=== PATIENT | female | born 2000 | race Two or more races ===

== ENCOUNTER 2024-04-24 05:46 | Inpatient (IN) | payer SELFPAY ==
[2024-04-24] VITALS (17 sets, daily range): BP systolic 109–141; BP diastolic 67–108; PULSE 51–138; RESP 17–18; TEMP 36.2–36.8; O2SAT 81–100; BMI 29.2
[2024-04-24 06:56] LABS: Basophils Absolute Auto 0.1 K/mm3 (0.0-0.1); Basophils Percent Auto 0.5 % (0.2-1.2); Eosinophils Absolute Auto 0.1 K/mm3 (0-0.3); Eosinophils Percent Auto 0.8 % (0-4.4); Hematocrit 34.4 % (37.0-47.0); Hemoglobin 10.6 g/dL (12.0-15.0); Immature Granulocyte Absolute 0.06 K/mm3 (0.00-0.031); Immature Granulocyte Percent A 0.6 % (0-0.5); Lymphocytes Absolute Auto 3.26 K/mm3 (0.9-3.2); Lymphocytes Percent Auto 33.7 % (18.3-44.2); Mean Corpuscular HGB Conc 30.8 g/dl (32-36); Mean Corpuscular Hemoglobin 22.5 pg (26-34); Mean Corpuscular Volume 72.9 fl (80-100); Mean Platelet Volume 10.4 fl (7.4-10.4); Monocytes Absolute Auto 0.9 K/mm3 (0.1-0.6); Monocytes Percent Auto 9.2 % (2.6-8.5); Neutrophils Absolute Auto 5.3 K/mm3 (1.3-6.7); Neutrophils Percent Auto 55.2 % (45.5-73.1); Platelet Count Result 323 k/mm3 (150-375); Red Blood Count 4.72 M/mm3 (4.2-5.4); White Blood Count 9.7 K/mm3 (4.5-10.0)
[2024-04-24] MEDS: AMPICILLIN 2 GM/NS 100 ML 2 GM/100 ML BAG IVPB (07:00)
[2024-04-24] MEDS: LACTATED RINGERS 1,000 ML 125 ML IV CONT (07:17)
[2024-04-24 07:19] LABS: Platelet Estimate Adequate (Adequate)
[2024-04-24 07:20] LABS: Anisocytosis 1+; Microcytosis 1+ (NORMAL); Ovalocytes 1+; Schistocytes Rare
--- NOTE | 2024-04-24 07:20 | WPDANESEPP ---
Anes - Eval Pre Procedure Procedure: Labor Epidural Date/Time: 04/24/24 07:20 Surgeon: Carlos Preop Diagnosis: Pain during labor Pre Op Diagnosis: Contractions, Leaking Patient Data Age: 23 Gender: F Height: 1.57 m Weight: 72.5 kg Allergies Allergy/AdvReac Type Severity Reaction Status Date / Time No Known Allergies Allergy Verified 03/22/24 13:02 Home Medications Medication Instructions Recorded Confirmed Type vits no.126-ferrous fum 1 tablet PO DAILY 03/22/24 03/22/24 History 28 mg iron-folic acid 800 mcg tablet (Classic ) Laboratory Tests 04/24/24 06:31 WBC 9.7 K/mm3 (4.5-10.0) RBC 4.72 M/mm3 (4.2-5.4) Hgb 10.6 L g/dL (12.0-15.0) Hct 34.4 L % (37.0-47.0) MCV 72.9 L fl (80-100) MCH 22.5 L pg (26-34) MCHC 30.8 L g/dl (32-36) RDW 19.0 H % (11.5-14.5) Plt Count 323 k/mm3 (150-375) MPV 10.4 fl (7.4-10.4) Immature Gran % (Auto) 0.6 H % (0-0.5) Neut % (Auto) 55.2 % (45.5-73.1) Lymph % (Auto) 33.7 % (18.3-44.2) Swain % (Auto) 9.2 H % (2.6-8.5) Eos % (Auto) 0.8 % (0-4.4) Baso % (Auto) 0.5 % (0.2-1.2) Lymph # (Auto) 3.26 H K/mm3 (0.9-3.2) Swain # (Auto) 0.9 H K/mm3 (0.1-0.6) Eos # (Auto) 0.1 K/mm3 (0-0.3) Baso # (Auto) 0.1 K/mm3 (0.0-0.1) Abs Immat Gran (auto) 0.06 H K/mm3 (0.00-0.031) Absolute Neuts (auto) 5.3 K/mm3 (1.3-6.7) Absolute Nucleated RBC 0.000 K/mm3 (0.0-0.012) Nucleated RBC % 0.0 % (0.0-0.2) Platelet Estimate Adequate (Adequate) Anisocytosis 1+ Microcytosis 1+ (NORMAL) Ovalocytes 1+ Schistocytes Rare RPR Pending HIV 1&2 Ab/P24 Ag 4thGn Pending Patient hx anesthesia problems: none Family hx anesthesia problems: none Results Review: All pre-operative results and documents have been reviewed as part of the pre-operative evaluation. PMFSH Family History Family History Other No pertinent family history Social History Social History Smoking status: Never smoker Second hand tobacco smoke exposure: No Substance use: never Do You Feel Safe in your Home?: Yes Lack of Transportation: No Lack of Food: Never True Current Housing: I Have Housing Concerned About Future Housing: No Difficulty Paying Gas/Electric Bills: No Difficulty Paying for Meds: No Currently Unemployed: No Education: Don't Know Difficulty w/ Childcare or Family Care: No Spiritual care concerns: No Exam Day of Procedure 04/24/24 07:20 Patient weight: overweight Heart: regular rate and rhythm Lungs: clear to auscultation Airway: Mallampati scale class II Neurological: alert and oriented
[2024-04-24 07:26] LABS: Rapid Plasma Reagin Non-Reactive (NonReactive)
[2024-04-24] MEDS: OXYTOCIN 30 UNITS/NS 500 ML 30 UNITS/500 ML BAG 999 UNITS IV CONT (07:39)
[2024-04-24 07:52] LABS: HIV 1/2 Ab P24 Ag Result Negative (Negative)
[2024-04-24] MEDS: OXYTOCIN 30 UNITS/NS 500 ML 30 UNITS/500 ML BAG 125 UNITS IV CONT (08:13)
--- NOTE | 2024-04-24 08:34 | PM.OBPRVD ---
OB - Vaginal Delivery Note Procedure Delivery date: 04/24/24 Delivery monitor: External FHT and External Uterine Route of delivery: Episiotomy description: None Laceration Description: Periurethral and Perineal - 1st Degree Delivery repair: vicryl Specimen: No Quantitative Blood Loss (ml): 100 Complications: No immediate complications [place] Baby Date of : 04/24/24 Time of : 07:36 Gestational Age by Date: 40 Weight (pounds): 8 Weight (ounces): 0
[2024-04-24] MEDS: WITCH HAZEL 40 PADS 1 PAD TOPICAL (10:25)
[2024-04-24] MEDS: BENZOCAINE 20% AER SPR (*SP) 56 GM CAN 1 SPRAY TOPICAL (10:25)
--- NOTE | 2024-04-24 10:56 | OBPPTRN ---
Patient transferred to post room #[id number] via (wheelchair ). Support person present. Oriented to unit, room, information board, rooming in, admission packet and security measures. Patient verbalizes understanding.
--- NOTE | 2024-04-24 12:36 | PC.NURSE ---
Violette #[id number] used on stratus to orient patient and family to floor and discuss care and testing for baby. Parents verbalize understanding.
[2024-04-25 03:47] LABS: Hemoglobin 9.1 g/dL (12.0-15.0)
[2024-04-25] MEDS: IBUPROFEN 600 MG TABLET PO (04:50)
[2024-04-25 05:13] VITALS: BP 111/73; PULSE 57; RESP 16; TEMP 36.7; O2SAT 99
[2024-04-25] MEDS: POLYSACCHARIDE IRON COMPLEX 150 MG CAPSULE PO ×2 (07:23→16:02)
[2024-04-25 07:43] VITALS: BP 111/67; PULSE 60; RESP 16; TEMP 36.8; O2SAT 99
--- NOTE | 2024-04-25 09:04 | PM.OBPNVD ---
OB - PN: Subj Subjective Date/time seen: 04/25/24 09:04 Patient comments: no complaints, pain well controlled, incisional pain, tolerating diet and flatus present OB - PN: Obj Data Labs 04/25/24 03:39 Labs: Laboratory Results - last 24 hr 04/25/24 03:39 Hgb 9.1 L Hct 29.0 L OB - PN A/P Plan day: 1 Plan: routine care Comments: No problems, routine care Time Spent With Patient Time: Total time spent is greater than 50% in coordination of care (as documented) at patient's floor/unit and/or counseling patient: Exam Const: General: comfortable, no acute distress and alert Resp: Effort & Inspection: normal respiratory effort Auscultation: no crackles, no rales and no rhonchi Cardio: Rate: regular rate Heart sounds: no click, no murmurs and no rubs GI: Inspection: non-distended GI Palp: No Tenderness to palpation present (GI) Auscultation: normal bowel sounds Other: Incision - CDI Extrem: General: normal to inspection, no pedal edema and no calf tenderness
[2024-04-25 20:16] VITALS: BP 108/75; PULSE 74; RESP 16; TEMP 36.9; O2SAT 99
[2024-04-26 07:15] VITALS: BP 105/66; PULSE 59; RESP 16; TEMP 36.4; O2SAT 99
[2024-04-26] MEDS: POLYSACCHARIDE IRON COMPLEX 150 MG CAPSULE PO (07:15)
--- NOTE | 2024-04-26 09:13 | PM.OBPNVD ---
OB - PN: Subj Subjective Date/time seen: 04/26/24 09:13 Interval history: PPD#2 s/p Doing well, pain controlled Voiding without issue Ready for discharge home today OB - PN: Obj Data Labs 04/25/24 03:39 OB - PN A/P Plan day: 2 Plan: routine care and discharge home Time Spent With Patient Time: Total time spent is greater than 50% in coordination of care (as documented) at patient's floor/unit and/or counseling patient: Review of Systems Review of Systems: All systems reviewed & are unremarkable except as noted in HPI and below Exam Const: General: comfortable and no acute distress Orientation/consciousness: patient oriented x3 Resp: Effort & Inspection: normal respiratory effort
--- NOTE | 2024-04-26 09:16 | PM.OBDSVD ---
DS: Admitting Diagnosis Discharge Date 04/26/24 Admitting Diagnosis labor DS: Discharge Diagnosis Discharge Diagnosis (1) (spontaneous vaginal delivery): Code(s): O80 - Encounter for full-term uncomplicated delivery Status: Acute OB - DS: Summary OB Procedures : None OB Procedures Intrapartum: Spontaneous Vag Delivery OB Procedures: : None Peripartum Data Laceration Description: Periurethral and Perineal - 1st Degree Episiotomy description: None Time Spent with Patient Time attestation: Total time spent providing and/or coordinating discharge services: Discharge Plan Discharge Attending physician on discharge: Jh Garcia Discharging Clinician: Jh Garcia Patient Disposition: Home, Self-Care Activity: may shower, as tolerated and pelvic rest Diet: as tolerated Discharge Instructions: Education: Mom and Baby Guide Given to: Follow-Up: Call your delivering provider's office for an appointment to be seen in: Mom and baby should come to the [facility] for the follow-up appointment. Appointment Date/Time: at What to expect at your follow-up visit: Call [phone] if you are unable to keep your appointment time. BREAST CARE: * Wear a snug supportive bra. * For engorgement discomfort: Breast Feeding: * Apply warm moist washcloths * Express milk as needed to relieve engorgement * Wear loose clothing Bottle Feeding: * May apply ice packs * For sore nipples: * Identify correct latch-on * Apply warm moist washcloths before and after nursing * Air dry nipples after nursing * May apply Lansinoh cream to nipples EPISIOTOMY/PERINEAL CARE: * Until bleeding stops, use your henry bottle after urinating * Change your pad frequently throughout the day * You may take sitz baths several times a day (fill your bathtub with warm water and soak for 20 minutes.) Do NOT bathe in the water * No tub baths until seen by your physician - You may shower ACTIVITY: * Rest as much as possible. * Do not exercise or lift anything heavier than your baby (such as laundry or other children.) * Avoid stairs or driving as much as possible. * Do not put anything into the vagina. No douching, tampons, or sexual activity until seen by physician. NOTIFY PHYSICIAN IF YOU HAVE ANY QUESTIONS OR IF ANY OF THE FOLLOWING SYMPTOMS OCCUR: * If your episiotomy or incision becomes red, swollen, or more painful than what you have experienced in the hospital. * If your vaginal bleeding becomes foul smelling. * If your vaginal bleeding becomes more heavy than a period or if your bleeding changes from pink to bright red. However, you may pass an occasional walnut-sized clot once or twice for the first week . * If you experience a sharp, shooting pain in you calves. * If you discover a hard, reddened area on your breast or if you experience flu-like symptoms. DIET: * Eat regular, well-balanced meals. * Drink plenty of fluids daily. If , drink to thirst. Patient Instructions: Antibiotic Form, Caring for Your Baby (DC), Vaginal Delivery (DC) Stand Alone Forms: General Discharge Information Follow-up/Referrals: Ja Gonzalez MD [Physician] - 5 Weeks Discharge Medications: New ibuprofen 600 mg Tablet 600 mg PO Q6H PRN (Reason: Cramping) Qty: 30 0RF docusate sodium 100 mg Capsule 100 mg PO BID PRN (Reason: Constipation) Qty: 60 0RF Continued Classic 28 mg iron- 800 mcg Tablet 1 tablet PO DAILY Date of admission: 04/24/24 05:46 Primary Care Provider: UNKNOWN,DOCTOR Admitting Provider: Ja Gonzalez Attending physician on admission: Ja Gonzalez Condition: Stable
[2024-04-26 14:27] LABS: OBXCEM ROM Plus Positive (Negative)
[2024-04-27 10:14] VITALS: BP 131/88; PULSE 94; RESP 18; TEMP 36.9; O2SAT 100
== END 2024-04-26 10:20 | disposition home or self-care (01) | DRG 560 ==
LOC: ANHLDR 06:41 → ANHOB2 04-26 06:47 → ANHLDR 04-28 08:22 → ANHOB2 04-28 08:22
PROVIDERS: Admitting Provider Obstetrics & Gynecology; Visit Provider Obstetrics & Gynecology
DX: O99.824 Streptococcus B carrier state complicating childbirth (principal); O70.0 First degree perineal laceration during delivery; O71.82 Other specified trauma to perineum and vulva; Z3A.40 40 weeks gestation of pregnancy; Z37.0 Single live birth
CPT/HCPCS: 36415; 84112; 85014; 85018; 85025; 86592; 86703; 86850; 86900; 86901; A9270; G0432; J0290; J2590; J2795; J7120